=== PATIENT | female | born 1975 | race Caucasian/White ===

== ENCOUNTER 2016-11-10 15:10 | Emergency (ER) | payer MEDICAID ==
[2016-11-10] MEDS ORDERED: NS 1,000 ML IV ONE (15:22)
[2016-11-10] MEDS ORDERED: HYDROmorphONE/DILAUDID 1 MG/ML SYR IVP ONE (15:22)
--- NOTE | 2016-11-10 15:25 | EDPHY ---
H & P Source: Patient Exam Limitations: No limitations - Personal History LMP (Females 10-55): 8-14 Days Ago - Medical/Surgical History Hx Asthma: No Hx Chronic Respiratory Disease: No Hx Diabetes: No Hx Cardiac Disease: No Hx Renal Disease: No Hx Cirrhosis: No Hx Alcoholism: No - Family History Significant Family History: No pertinent family hx - Social History Alcohol Use: Sober Drug Use: None Time Seen by Provider: 11/10/16 15:17 HPI/ROS: CHIEF COMPLAINT: Epigastric pain HISTORY OF PRESENT ILLNESS: Patient is a 41-year-old female who reports a history of alcoholism and pancreatitis who called an ambulance complaining of epigastric pain. Her symptoms began today. Her last drink was today. She has history of appendectomy as well as chronic depression. At one point during our interview she told me that she was suicidal but then later states that she has been suicidal for 40 years and that she is not actively suicidal today. She does however state that if her pain does not come under control that she "wants to ". She has not vomited. She has not had a fever. She has not had any diarrhea. REVIEW OF SYSTEMS: Constitutional: denies: chills, fever, recent illness, recent injury EENTM: denies: blurred vision, double vision, nose congestion Respiratory: denies: cough, shortness of breath Cardiac: denies: chest pain, irregular heart rate, lightheadedness, palpitations Gastrointestinal/Abdominal: See HPI Genitourinary: denies: dysuria, frequency, hematuria, pain Musculoskeletal: denies: joint pain, muscle pain Skin: denies: lesions, rash, jaundice, bruising Neurological: denies: headache, numbness, paresthesia, tingling, dizziness, weakness Hematologic/Lymphatic: denies: blood clots, easy bleeding, easy bruising Immunologic/allergic: denies: HIV/AIDS, transplant EXAM: GENERAL: Well-appearing, well-nourished and in no acute distress. HEAD: Atraumatic, normocephalic. EYES: Pupils equal round and reactive to light, extraocular movements intact, sclera anicteric, conjunctiva are normal. ENT: TMs normal, nares patent, oropharynx clear without exudates. Moist mucous membranes. NECK: Normal range of motion, supple without lymphadenopathy or JVD. LUNGS: Breath sounds clear to auscultation bilaterally and equal. No wheezes rales or rhonchi. HEART: Regular rate and rhythm without murmurs, rubs or gallops. ABDOMEN: Soft, nontender, normoactive bowel sounds. No guarding, no rebound. No masses appreciated. BACK: No CVA tenderness, no spinal tenderness, step-offs or deformities EXTREMITIES: Normal range of motion, no pitting or edema. No clubbing or cyanosis. NEUROLOGICAL: Cranial nerves II through XII grossly intact. Normal speech, normal gait. 5/5 strength, normal movement in all extremities, normal sensation PSYCH: Normal mood, normal affect. SKIN: Warm, dry, normal turgor, no visible rashes or lesions. (Jarrod Whittaker) Constitutional: Initial Vital Signs Temperature (C) 37.2 C 11/10/16 15:36 Heart Rate 113 H 11/10/16 15:36 Respiratory Rate 17 11/10/16 15:36 Blood Pressure 138/115 H 11/10/16 15:36 O2 Sat (%) 98 11/10/16 15:36 O2 Delivery Mode Room Air O2 (L/minute) 2 Allergies/Adverse Reactions: disulfiram [From Antabuse] Allergy (Verified 11/10/16 15:36) Sulfa (Sulfonamide Antibiotics) Allergy (Verified 11/10/16 15:36) Home Medications: Medication Instructions Recorded chlordiazePOXIDE 25MG PREPK#6 25 mg PO Q3 PRN #1 btl 11/11/16 [Librium 25 mg Prepack#6] chlordiazePOXIDE [Librium 25 mg 25 mg PO TID PRN #7 cap 11/11/16 (*)] Medical Decision Making ED Course/Re-evaluation: 6:15 a.m.- The patient has been stable throughout my shift. Her most recent blood alcohol level was 0 0.045 just after midnight. She should be ready for evaluation by mental health shortly. This is not occurred yet. At 7:00 a.m., I anticipate the case will be signed out to the oncoming provider Dr. Berrios. (Nany Stover) 9:50 a.m. patient has been evaluated by mental health. I have discussed the care and treatment plan with mental health. She is in [id number] withdrawal. She has been given Ativan intravenously and Librium by mouth. She is stable. The plan is admission to detox unit. Patient is in agreement ( Kushal Berrios) At one point during our initial interview the patient requested to be admitted to the psychiatric service. We discussed this further and agree to treat her medically 1st and then readdress her psychiatric issues. She denies acute suicidality currently. She is not on a hold. 4:40 p.m. the patient is feeling much better. She is still slightly tachycardic and tremulous. I will add Librium to the Ativan she had previously. She continues to endorse suicidal ideation and is requesting to speak with mental health. 11:30 p.m. the patient is continuing to sober. We are awaiting sobriety and psychiatric evaluation. Care transferred to Dr. Stover (Jarrod Whittaker) Differential Diagnosis: Partial list of the Differential diagnosis considered include but were not limited to; depression, suicidality, pancreatitis, peptic ulcer disease, intoxication, substance abuse and although unlikely based on the history and physical exam, I also considered perforation, biliary disease, volvulus, abscess. (Jarrod Whittaker) - Data Points Laboratory Results: Laboratory Results 11/10/16 15:35 11/10/16 15:35 Medications Given: Discontinued Medications Chlordiazepoxide HCl (Librium) 25 mg PO EDNOW ONE Stop: 11/10/16 16:41 Last Admin: 11/10/16 16:51 Dose: 25 mg Chlordiazepoxide HCl (Librium) 25 mg PO EDNOW ONE Stop: 11/11/16 09:39 Last Admin: 11/11/16 09:39 Dose: 25 mg Hydromorphone HCl (Dilaudid) 1 mg IVP EDNOW ONE Stop: 11/10/16 15:23 Last Admin: 11/10/16 15:45 Dose: 1 mg Sodium Chloride (Ns) 1,000 mls @ 0 mls/hr IV ONCE ONE PRN Reason: Wide Open Stop: 11/10/16 15:23 Last Admin: 11/10/16 15:45 Dose: 1,000 mls Lorazepam (Ativan Injection) 2 mg IVP EDNOW ONE Stop: 11/10/16 16:21 Last Admin: 11/10/16 16:20 Dose: 2 mg Lorazepam (Ativan) 1 mg PO EDNOW ONE Stop: 11/10/16 23:53 Last Admin: 11/10/16 23:59 Dose: 1 mg Lorazepam (Ativan Injection) 1 mg IVP EDNOW ONE Stop: 11/11/16 09:38 Last Admin: 11/11/16 09:38 Dose: 1 mg Departure - Departure Disposition: Other Psych, Not Gautam Clinical Impression: Depression Qualifiers: Depression Type: major depressive disorder Major depression recurrence: recurrent Active/Remission status: currently active Major depression episode severity: moderate Qualified Code(s): F33.1 - Major depressive disorder, recurrent, moderate Alcohol intoxication Qualifiers: Complication of substance-induced condition: with unspecified complication Qualified Code(s): F10.129 - Alcohol abuse with intoxication, unspecified Condition: Fair Instructions: Chlordiazepoxide (By mouth), Alcohol Withdrawal (ED) Additional Instructions: Librium every 3-4 hours as needed for alcohol withdrawal. Return for worsening symptoms Referrals: Patient,NotPresent [Unknown] - As per Instructions Prescriptions: chlordiazePOXIDE [Librium 25 mg (*)] 25 mg PO TID PRN #7 cap PRN Reason: Agitation, Acute chlordiazePOXIDE 25MG PREPK#6 [Librium 25 mg Prepack#6] 25 mg PO Q3 PRN #1 btl PRN Reason: Agitation, Acute
[2016-11-10 15:41] LABS: % IMMATURE GRANULYOCYTES 0.2 % (0.0-1.1); ABSOLUTE IMMATURE GRANULOCYTES 0.01 10^3/uL (0.00-0.10); ADD DIFF? NO; ADD MORPH? NO; ADD SCAN? NO; ATYPICAL LYMPHOCYTE FLAG 0 (0-99); FRAGMENT RBC FLAG 20 (0-99); HEMOGLOBIN 12.4 g/dL (12.6-16.3); LEFT SHIFT FLG 0 (0-99); LIPEMIA HEMOLYSIS FLAG 80 (0-99); MEAN CELL HEMOGLOBIN 24.4 pg (27.9-34.1); MEAN CELL HEMOGLOBIN CONCENTR. 32.6 g/dL (32.4-36.7); MEAN CELL VOLUME 74.7 fL (81.5-99.8); MEAN PLATELET VOLUME 9.4 fL (8.7-11.7); PLATELET CLUMPS FLAG 0 (0-99); PLATELET COUNT 322 10^3/uL (150-400); RED BLOOD CELL COUNT 5.09 10^6/uL (4.18-5.33); RED CELL DISTRIBUTION WIDTH 18.7 % (11.5-15.2)
[2016-11-10 15:54] LABS: ALANINE AMINOTRANSFERASE 49 IU/L (9-52); ALBUMIN 5.2 g/dL (3.5-5.0); ALKALINE PHOSPHATASE 94 IU/L (38-126); ANION GAP 23 mEq/L (8-16); ASPARTATE AMINOTRANSFERASE 71 IU/L (14-46); BILIRUBIN,TOTAL 0.9 mg/dL (0.1-1.4); BILIRUBIN-CONJUGATED 0.5 mg/dL (0.0-0.5); BILIRUBIN-UNCONJUGATED 0.4 mg/dL (0.0-1.1); CALCIUM 9.3 mg/dL (8.5-10.4); CARBON DIOXIDE 16 mEq/l (22-31); CHLORIDE 105 mEq/L (97-110); CREATININE 0.7 mg/dL (0.6-1.0); GLOMERULAR FILTRATION RATE > 60; GLUCOSE 113 mg/dL (70-100); POTASSIUM 4.1 mEq/L (3.5-5.2); SODIUM 144 mEq/L (134-144); TOTAL PROTEIN 8.7 g/dL (6.3-8.2)
[2016-11-10] MEDS ORDERED: LORazepam 2 MG/ML INJ IVP ONE (16:20)
[2016-11-10] MEDS ORDERED: chlordiazePOXIDE 25 MG CAP PO ONE (16:40)
[2016-11-10 16:51] LABS: ETHANOL SERUM 285 mg/dL (0-10)
[2016-11-10] MEDS ORDERED: LORazepam 1 MG TAB PO ONE (23:52)
[2016-11-11] MEDS ORDERED: chlordiazePOXIDE 25 MG CAP PO SCH
[2016-11-11] MEDS ORDERED: LORazepam 1 MG TAB ONE (07:53)
[2016-11-11 08:04] VITALS: TEMP 98.1
[2016-11-11] MEDS ORDERED: chlordiazePOXIDE 25 MG CAP ONE (09:34)
[2016-11-11] MEDS ORDERED: LORazepam 2 MG/ML INJ ONE (09:34)
[2016-11-11] MEDS ORDERED: LORazepam 2 MG/ML INJ IVP ONE (09:37)
[2016-11-11] MEDS ORDERED: chlordiazePOXIDE 25 MG CAP PO ONE (09:38)
[2016-11-11 10:27] VITALS: BP 139/92; PULSE 93; RESP 17; O2SAT 92
== END 2016-11-11 11:00 ==
LOC: EDUNIT#
DX: F10.129 Alcohol abuse with intoxication, unspecified (principal); F33.1 Major depressive disorder, recurrent, moderate
CPT/HCPCS: 80305; 96374; G0480; J1170; J2060

== ENCOUNTER 2017-01-09 11:52 | Emergency (ER) | payer MEDICAID ==
[2017-01-09] MEDS ORDERED: ONDANSETRON DISINTEGRATING 4 MG TAB PO ONE (12:02)
[2017-01-09] MEDS ORDERED: ONDANSETRON 4 MG/2 ML VIAL IVP ONE (14:43)
[2017-01-09] MEDS ORDERED: NS 500 ML IV ONE (14:44)
--- NOTE | 2017-01-09 15:14 | EDPHY ---
Mental Health General Previous Psychiatric History: previous inpatient psychiatric admission, previous ED visit related to suicidal ideations, previous suicide attempt, substance abuse, depression Smoking Status: Never smoked Time Patient Placed on Detainer: 15:10 Time Medically Cleared for Psychiatric Evaluation: 17:00 Time of Transfer of Care: 17:00 To :: Mauricio Course: patient remained stable over course of my shift Narrative: CHIEF COMPLAINT: ETOH, suicidal HISTORY OF PRESENT ILLNESS: 41-year-old female presents emergency department voluntarily a friend reports increases alcohol consumption over the last week drinking 1.5 pt daily. Patient reports she relapsed 5 months ago. She was sober for 3 months after a rehab. Patient reports a history of alcohol withdrawal symptoms. No history of alcohol withdrawals seizures. Patient states she is suicidal. She says she has been suicidal most all of her life though it has worsened over the last 3 days. She has a plan to overdose on pills. Patient reports she has not taken her Prozac for about a week. She reports she was in the ICU 1 year ago after an overdose. Patient reports epigastric abdominal pain. She states she has a history of pancreatitis. She complains of nausea and vomiting. She denies blood in her vomit, no coffee- ground emesis. No blood in her stool. She denies chest pain or shortness of breath. REVIEW OF SYSTEMS: A comprehensive 10 point review of systems is otherwise negative aside from elements mentioned in the history of present illness. (Sofia Lima) 2100: Patient is medically clear for mental health evaluation. 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 Patient is now liana for safety. Has no suicidal ideation. There have agreed that the [facility]. When she has gone through her alcohol withdrawal she will follow up with [facility] regarding her depression. Patient will be sent with Librium. ( Jonathan Martínez) Medical Decision Makin-patient is medically cleared for evaluation. Lipase is normal. Patient has no evidence of pancreatitis. Anion gap is 29. Patient is given 1 L of normal saline, chemistry panel is rechecked, anion gap is down to 24. Patient is given another L of fluid left, she will be given something to eat. Mental health evaluation has been ordered. 1700-Report passed on to Dr. Martínez at the end of my shift pending eval. ( Sofia Lima) 2300 Care assumed by me from Dr. Martínez pending sober mental health evaluation. (Jonathan Martínez) - Objective Vital Signs: Initial Vital Signs Temperature (C) 37.1 C 01/09/17 11:56 Heart Rate 113 H 01/09/17 11:56 Respiratory Rate 18 01/09/17 11:56 Blood Pressure 145/92 H 01/09/17 11:56 O2 Sat (%) 96 01/09/17 11:56 O2 Delivery Mode Room Air Allergies/Adverse Reactions: disulfiram [From Antabuse] Allergy (Verified 01/09/17 12:00) Sulfa (Sulfonamide Antibiotics) Allergy (Verified 01/09/17 12:00) Home Medications: Medication Instructions Recorded Propranolol HCl 01/09/17 Prozac 40 mg 01/09/17 traZODone 01/09/17 Medications Given: Discontinued Medications Sodium Chloride (Ns) 500 mls @ 1,000 mls/hr IV ONCE ONE PRN Reason: Protocol Stop: 01/09/17 15:13 Last Admin: 01/09/17 14:51 Dose: 500 mls Sodium Chloride (Ns) 1,000 mls @ 0 mls/hr IV ONCE ONE; Wide Open PRN Reason: Protocol Stop: 01/09/17 16:57 Last Admin: 01/09/17 17:32 Dose: 1,000 mls Lorazepam (Ativan Injection) 1 mg IVP EDNOW ONE Stop: 01/09/17 16:25 Last Admin: 01/09/17 16:32 Dose: 1 mg Lorazepam (Ativan Injection) 1 mg IVP EDNOW ONE Stop: 01/09/17 22:32 Last Admin: 01/09/17 22:42 Dose: 1 mg Ondansetron HCl (Zofran Odt) 4 mg PO EDNOW ONE Stop: 01/09/17 12:03 Last Admin: 01/09/17 12:04 Dose: 4 mg Ondansetron HCl (Zofran) 4 mg IVP EDNOW ONE Stop: 01/09/17 14:44 Last Admin: 01/09/17 14:51 Dose: 4 mg Laboratory Results: Laboratory Results 01/09/17 14:02 01/09/17 20:10 01/09/17 01/09/17 01/09/17 20:10 16:30 14:35 WBC RBC Hgb Hct MCV MCH MCHC RDW Plt Count MPV Neut % (Auto) Lymph % (Auto) Hale % (Auto) Eos % (Auto) Baso % (Auto) Nucleat RBC Rel Count Absolute Neuts (auto) Absolute Lymphs (auto) Absolute Monos (auto) Absolute Eos (auto) Absolute Basos (auto) Absolute Nucleated RBC Immature Gran % Immature Gran # Sodium 139 mEq/L mEq/L 145 mEq/L H mEq/L (134-144) (134-144) Potassium 4.3 mEq/L mEq/L 4.7 mEq/L mEq/L (3.5-5.2) (3.5-5.2) Chloride 107 mEq/L mEq/L 109 mEq/L mEq/L (97-110) (97-110) Carbon Dioxide 16 mEq/l L mEq/l 12 mEq/l L mEq/l (22-31) (22-31) Anion Gap 16 mEq/L mEq/L 24 mEq/L H mEq/L (8-16) (8-16) BUN 9 mg/dL mg/dL 9 mg/dL mg/dL (7-23) (7-23) Creatinine 0.7 mg/dL mg/dL 0.7 mg/dL mg/dL (0.6-1.0) (0.6-1.0) Estimated GFR > 60 > 60 Glucose 206 mg/dL H D mg/dL 71 mg/dL mg/dL (70-100) (70-100) Calcium 8.2 mg/dL L mg/dL 8.9 mg/dL mg/dL (8.5-10.4) (8.5-10.4) Lipase Beta HCG, Qual Salicylates Urine Opiates Screen NEGATIVE (NEGATIVE) Acetaminophen Urine Barbiturates NEGATIVE (NEGATIVE) Ur Phencyclidine Scrn NEGATIVE (NEGATIVE) Ur Amphetamine Screen NEGATIVE (NEGATIVE) U Benzodiazepines Scrn NEGATIVE (NEGATIVE) Urine Cocaine Screen NEGATIVE (NEGATIVE) U Marijuana (THC) Screen NON-NEGATIVE H (NEGATIVE) Ethyl Alcohol 01/09/17 01/09/17 01/09/17 14:02 14:02 14:02 WBC 8.89 10^3/uL 10^3/uL (3.80-9.50) RBC 4.75 10^6/uL 10^6/uL (4.18-5.33) Hgb 12.0 g/dL L g/dL (12.6-16.3) Hct 36.9 % L % (38.0-47.0) MCV 77.7 fL L fL (81.5-99.8) MCH 25.3 pg L pg (27.9-34.1) MCHC 32.5 g/dL g/dL (32.4-36.7) RDW 18.6 % H % (11.5-15.2) Plt Count 335 10^3/uL 10^3/uL (150-400) MPV 10.1 fL fL (8.7-11.7) Neut % (Auto) 74.6 % H % (39.3-74.2) Lymph % (Auto) 20.5 % % (15.0-45.0) Hale % (Auto) 4.3 % L % (4.5-13.0) Eos % (Auto) 0.0 % L % (0.6-7.6) Baso % (Auto) 0.4 % % (0.3-1.7) Nucleat RBC Rel Count 0.0 % % (0.0-0.2) Absolute Neuts (auto) 6.63 10^3/uL H 10^3/uL (1.70-6.50) Absolute Lymphs (auto) 1.82 10^3/uL 10^3/uL (1.00-3.00) Absolute Monos (auto) 0.38 10^3/uL 10^3/uL (0.30-0.80) Absolute Eos (auto) 0.00 10^3/uL L 10^3/uL (0.03-0.40) Absolute Basos (auto) 0.04 10^3/uL 10^3/uL (0.02-0.10) Absolute Nucleated RBC 0.00 10^3/uL 10^3/uL (0-0.01) Immature Gran % 0.2 % % (0.0-1.1) Immature Gran # 0.02 10^3/uL 10^3/uL (0.00-0.10) Sodium 145 mEq/L H mEq/L (134-144) Potassium 4.2 mEq/L mEq/L (3.5-5.2) Chloride 105 mEq/L mEq/L (97-110) Carbon Dioxide 11 mEq/l L mEq/l (22-31) Anion Gap 29 mEq/L H mEq/L (8-16) BUN 10 mg/dL mg/dL (7-23) Creatinine 0.8 mg/dL mg/dL (0.6-1.0) Estimated GFR > 60 Glucose 81 mg/dL mg/dL (70-100) Calcium 10.1 mg/dL mg/dL (8.5-10.4) Lipase 38.0 IU/L IU/L (23-300) Beta HCG, Qual NEGATIVE Salicylates < 1.0 mg/dL L mg/dL (2.0-20.0) Urine Opiates Screen Acetaminophen < 10 mcg/mL L mcg/mL (10.0-30.0) Urine Barbiturates Ur Phencyclidine Scrn Ur Amphetamine Screen U Benzodiazepines Scrn Urine Cocaine Screen U Marijuana (THC) Screen Ethyl Alcohol 337 mg/dL H mg/dL (0-10) Departure - Departure Disposition: Home, Routine, Self-Care Clinical Impression: Alcohol intoxication Qualifiers: Complication of substance-induced condition: uncomplicated Qualified Code(s): F10.920 - Alcohol use, unspecified with intoxication, uncomplicated Depression Qualifiers: Depression Type: unspecified Qualified Code(s): F32.9 - Major depressive disorder, single episode, unspecified Condition: Fair Instructions: Alcohol Intoxication (ED), Depression (ED), Chlordiazepoxide (By mouth) Additional Instructions: Follow up with [facility] in 2-3 days for further treatment for her depression. Return emergency depart for increasing suicidal thoughts. Fevers, chills, nausea, vomiting, or any other concerns. Referrals: NONE *PRIMARY CARE P,. [Primary Care Provider] - As per Instructions
[2017-01-09 15:17] LABS: % IMMATURE GRANULYOCYTES 0.2 % (0.0-1.1); ABSOLUTE IMMATURE GRANULOCYTES 0.02 10^3/uL (0.00-0.10); ADD DIFF? NO; ADD MORPH? NO; ADD SCAN? NO; ATYPICAL LYMPHOCYTE FLAG 0 (0-99); FRAGMENT RBC FLAG 20 (0-99); HEMATOCRIT 36.9 % (38.0-47.0); LEFT SHIFT FLG 0 (0-99); LIPEMIA HEMOLYSIS FLAG 80 (0-99); MEAN CELL HEMOGLOBIN 25.3 pg (27.9-34.1); MEAN CELL HEMOGLOBIN CONCENTR. 32.5 g/dL (32.4-36.7); MEAN CELL VOLUME 77.7 fL (81.5-99.8); MEAN PLATELET VOLUME 10.1 fL (8.7-11.7); PLATELET CLUMPS FLAG 0 (0-99); PLATELET COUNT 335 10^3/uL (150-400); RED BLOOD CELL COUNT 4.75 10^6/uL (4.18-5.33); RED CELL DISTRIBUTION WIDTH 18.6 % (11.5-15.2)
[2017-01-09 15:23] LABS: ANION GAP 29 mEq/L (8-16); CALCIUM 10.1 mg/dL (8.5-10.4); CARBON DIOXIDE 11 mEq/l (22-31); CHLORIDE 105 mEq/L (97-110); CREATININE 0.8 mg/dL (0.6-1.0); GLOMERULAR FILTRATION RATE > 60; GLUCOSE 81 mg/dL (70-100); POTASSIUM 4.2 mEq/L (3.5-5.2); SALICYLATE < 1.0 mg/dL (2.0-20.0); SODIUM 145 mEq/L (134-144)
[2017-01-09 15:44] LABS: ETHANOL SERUM 337 mg/dL (0-10)
[2017-01-09] MEDS ORDERED: NS 1,000 ML IV ONE ×2 (16:04→16:56)
[2017-01-09] MEDS ORDERED: LORazepam 2 MG/ML INJ IVP ONE ×2 (16:24→22:31)
[2017-01-09 16:35] VITALS: TEMP 98.2
[2017-01-09 16:49] LABS: ANION GAP 24 mEq/L (8-16); CALCIUM 8.9 mg/dL (8.5-10.4); CARBON DIOXIDE 12 mEq/l (22-31); CHLORIDE 109 mEq/L (97-110); CREATININE 0.7 mg/dL (0.6-1.0); GLOMERULAR FILTRATION RATE > 60; GLUCOSE 71 mg/dL (70-100); POTASSIUM 4.7 mEq/L (3.5-5.2); SODIUM 145 mEq/L (134-144)
[2017-01-09 20:33] LABS: ANION GAP 16 mEq/L (8-16); CALCIUM 8.2 mg/dL (8.5-10.4); CARBON DIOXIDE 16 mEq/l (22-31); CHLORIDE 107 mEq/L (97-110); CREATININE 0.7 mg/dL (0.6-1.0); GLOMERULAR FILTRATION RATE > 60; GLUCOSE 206 mg/dL (70-100); POTASSIUM 4.3 mEq/L (3.5-5.2); SODIUM 139 mEq/L (134-144)
[2017-01-10] MEDS ORDERED: CHLORDIAZEPOXIDE 25MG PREPK#6 BTL TAKEHOME ONE (00:54)
[2017-01-10 01:12] VITALS: RESP 16
[2017-01-10] MEDS ORDERED: chlordiazePOXIDE 25 MG CAP PO ONE (01:30)
[2017-01-10 01:49] VITALS: BP 143/94; PULSE 104; O2SAT 98
== END 2017-01-10 02:01 | disposition home or self-care (01) ==
DX: F10.120 Alcohol abuse with intoxication, uncomplicated (principal); F32.9 Major depressive disorder, single episode, unspecified; E86.9 Volume depletion, unspecified
CPT/HCPCS: 80305; 96374; G0480; J2060; J2405

== ENCOUNTER 2017-01-11 04:28 | Emergency (ER) | payer MEDICAID ==
--- NOTE | 2017-01-11 04:41 | EDPHY ---
H & P - Medical/Surgical History Hx Asthma: No Hx Chronic Respiratory Disease: No Hx Diabetes: No Hx Cardiac Disease: No Hx Renal Disease: No Hx Cirrhosis: No Hx Alcoholism: Yes Hx HIV/AIDS: No Hx Splenectomy or Spleen Trauma: No Other PMH: pancreatitis, ETOH abuse, suicidal ideation, depression, Bipolar, PTSD - Social History Smoking Status: Never smoked Time Seen by Provider: 01/11/17 04:37 HPI/ROS: Chief Complaint: Intoxicated, suicidal HPI: 41-year-old woman with a history of chronic alcoholism is [facility] after attempted suicide. She was seen by [facility] and placed on a mental health hold. Patient was seen 2 days ago and after being intoxicated and suicidal. At that time after she sobered up she is liana for safety. She denies any ingestions other than alcohol. She was at the are trying to find something to stab herself with. ROS: 10 point Review of Systems is negative except as noted in the HPI. PMH: Pancreatitis, depression, PTSD, chronic alcohol abuse Medications: She is noncompliant but is supposed to be taking Prozac and trazodone Allergies: Sulfa and Antabuse Social History: No smoking, heavy alcohol, no recreational drug use Family History: non-contributory Physical Exam: Gen: Awake, Alert, smells of alcohol, slurred speech HEENT: Nose: no rhinorrhea Eyes: PERRLA, EOMI Mouth: Moist mucosa Neck: Supple, no JVD Chest: nontender, lungs clear to auscultation Heart: S1, S2 normal, no murmur Abd: Soft, non-tender, no guarding Back: no CVA tenderness, no midline tenderness Ext: no edema, non-tender Skin: no rash Neuro: CN II-XII intact, Sensation grossly intact, Strength 5/5 in bilateral upper and lower extremities (Jonathan Martínez) Constitutional: Initial Vital Signs Temperature (C) 36.6 C 01/11/17 05:14 Heart Rate 97 01/11/17 05:14 Respiratory Rate 16 01/11/17 05:14 Blood Pressure 118/87 H 01/11/17 05:14 O2 Sat (%) 94 01/11/17 05:14 O2 Delivery Mode Room Air Allergies/Adverse Reactions: disulfiram [From Antabuse] Allergy (Verified 01/09/17 12:00) Sulfa (Sulfonamide Antibiotics) Allergy (Verified 01/09/17 12:00) Home Medications: Medication Instructions Recorded Propranolol HCl 01/09/17 Prozac 40 mg 01/09/17 traZODone 01/09/17 Medical Decision Making ED Course/Re-evaluation: 0700 Pt s/o to Dr Berrios pending mental health evaluation. (Jonathan Martínez) Patient signed out to me at 7:00 a.m.. Re-evaluation of the patient at 7:25 a.m.. She is resting comfortably though says she is thinking of her hurting herself. Possibly by stabbing. It is noted patient's alcohol level is elevated. Plan is when sober re-evaluation. If not suicidal when sober may go back [facility]. If still suicidal when sober mental health evaluation Patient is still suicidal when sober. She is awaiting mental health evaluation (Kushal Berrios) 4:40 p.m. the patient is now sober. She denies suicidality. She has been evaluated and they wish to release her hold. I agree with this plan. (Jarrod Whittaker) Care Turn Over: Dr. Whittaker at 3:00 p.m. (Kushal Berrios) - Data Points Laboratory Results: Laboratory Results 01/11/17 05:10 01/11/17 05:10 01/11/17 01/11/17 01/11/17 05:10 05:10 04:47 WBC 6.07 10^3/uL 10^3/uL (3.80-9.50) RBC 4.57 10^6/uL 10^6/uL (4.18-5.33) Hgb 11.6 g/dL L g/dL (12.6-16.3) Hct 35.2 % L % (38.0-47.0) MCV 77.0 fL L fL (81.5-99.8) MCH 25.4 pg L pg (27.9-34.1) MCHC 33.0 g/dL g/dL (32.4-36.7) RDW 17.5 % H % (11.5-15.2) Plt Count 254 10^3/uL D 10^3/uL (150-400) MPV 10.1 fL fL (8.7-11.7) Neut % (Auto) 60.1 % % (39.3-74.2) Lymph % (Auto) 30.5 % % (15.0-45.0) [place] % (Auto) 5.3 % % (4.5-13.0) Eos % (Auto) 3.1 % % (0.6-7.6) Baso % (Auto) 0.8 % % (0.3-1.7) Nucleat RBC Rel Count 0.0 % % (0.0-0.2) Absolute Neuts (auto) 3.65 10^3/uL 10^3/uL (1.70-6.50) Absolute Lymphs (auto) 1.85 10^3/uL 10^3/uL (1.00-3.00) Absolute Monos (auto) 0.32 10^3/uL 10^3/uL (0.30-0.80) Absolute Eos (auto) 0.19 10^3/uL 10^3/uL (0.03-0.40) Absolute Basos (auto) 0.05 10^3/uL 10^3/uL (0.02-0.10) Absolute Nucleated RBC 0.00 10^3/uL 10^3/uL (0-0.01) Immature Gran % 0.2 % % (0.0-1.1) Immature Gran # 0.01 10^3/uL 10^3/uL (0.00-0.10) Sodium 146 mEq/L H mEq/L (134-144) Potassium 3.4 mEq/L L mEq/L (3.5-5.2) Chloride 108 mEq/L mEq/L (97-110) Carbon Dioxide 19 mEq/l L mEq/l (22-31) Anion Gap 19 mEq/L H mEq/L (8-16) BUN 4 mg/dL L mg/dL (7-23) Creatinine 0.6 mg/dL mg/dL (0.6-1.0) Estimated GFR > 60 Glucose 108 mg/dL H mg/dL (70-100) Calcium 9.3 mg/dL mg/dL (8.5-10.4) Urine Opiates Screen NEGATIVE (NEGATIVE) Urine Barbiturates NEGATIVE (NEGATIVE) Ur Phencyclidine Scrn NEGATIVE (NEGATIVE) Ur Amphetamine Screen NEGATIVE (NEGATIVE) U Benzodiazepines Scrn NON-NEGATIVE H (NEGATIVE) Urine Cocaine Screen NEGATIVE (NEGATIVE) U Marijuana (THC) Screen NON-NEGATIVE H (NEGATIVE) Ethyl Alcohol 274 mg/dL H mg/dL (0-10) Medications Given: Discontinued Medications Lorazepam (Ativan) 1 mg PO EDNOW ONE Stop: 01/11/17 06:34 Last Admin: 01/11/17 06:48 Dose: 1 mg Lorazepam (Ativan) 1 mg PO EDNOW ONE Stop: 01/11/17 14:01 Last Admin: 01/11/17 14:04 Dose: 1 mg Departure - Departure Disposition: Home, Routine, Self-Care Clinical Impression: Alcohol intoxication Qualifiers: Complication of substance-induced condition: with unspecified complication Qualified Code(s): F10.929 - Alcohol use, unspecified with intoxication, unspecified Condition: Fair Instructions: Alcohol Intoxication (ED) Referrals: Patient,NotPresent [Unknown] - As per Instructions Verito Shipley MD [Medical Doctor] - As per Instructions Larry Membreno MD [Medical Doctor] - As per Instructions
[2017-01-11 05:18] VITALS: RESP 16
[2017-01-11 05:30] LABS: % IMMATURE GRANULYOCYTES 0.2 % (0.0-1.1); ABSOLUTE IMMATURE GRANULOCYTES 0.01 10^3/uL (0.00-0.10); ADD DIFF? NO; ADD MORPH? NO; ADD SCAN? NO; ATYPICAL LYMPHOCYTE FLAG 0 (0-99); FRAGMENT RBC FLAG 20 (0-99); HEMATOCRIT 35.2 % (38.0-47.0); HEMOGLOBIN 11.6 g/dL (12.6-16.3); LEFT SHIFT FLG 0 (0-99); LIPEMIA HEMOLYSIS FLAG 80 (0-99); MEAN CELL HEMOGLOBIN 25.4 pg (27.9-34.1); MEAN PLATELET VOLUME 10.1 fL (8.7-11.7); PLATELET CLUMPS FLAG 30 (0-99); PLATELET COUNT 254 10^3/uL (150-400); RED BLOOD CELL COUNT 4.57 10^6/uL (4.18-5.33); RED CELL DISTRIBUTION WIDTH 17.5 % (11.5-15.2)
[2017-01-11 05:33] LABS: ANION GAP 19 mEq/L (8-16); CALCIUM 9.3 mg/dL (8.5-10.4); CARBON DIOXIDE 19 mEq/l (22-31); CHLORIDE 108 mEq/L (97-110); CREATININE 0.6 mg/dL (0.6-1.0); ETHANOL SERUM 274 mg/dL (0-10); GLOMERULAR FILTRATION RATE > 60; GLUCOSE 108 mg/dL (70-100); POTASSIUM 3.4 mEq/L (3.5-5.2); SODIUM 146 mEq/L (134-144)
[2017-01-11] MEDS ORDERED: LORazepam 1 MG TAB PO ONE ×2 (06:33→14:00)
[2017-01-11 16:53] VITALS: BP 165/98; PULSE 100; TEMP 98.1; O2SAT 96
== END 2017-01-11 16:56 | disposition home or self-care (01) ==
LOC: EDUNIT#
DX: F10.120 Alcohol abuse with intoxication, uncomplicated (principal)
CPT/HCPCS: 80305; G0480

== ENCOUNTER 2017-02-10 19:13 | Emergency (ER) | payer MEDICAID ==
--- NOTE | 2017-02-10 20:57 | EDPHY ---
H & P Stated Complaint: pt says "I'm drunk and I want to get sober." Source: Patient, Family Exam Limitations: No limitations - Medical/Surgical History Hx Asthma: No Hx Chronic Respiratory Disease: No Hx Diabetes: No Hx Cardiac Disease: No Hx Renal Disease: No Hx Cirrhosis: No Hx Alcoholism: Yes Hx HIV/AIDS: No Hx Splenectomy or Spleen Trauma: No Other PMH: pancreatitis, ETOH abuse, suicidal ideation, depression, Bipolar, PTSD - Social History Smoking Status: Never smoked HPI/ROS: CHIEF COMPLAINT: SI, alcohol abuse HISTORY OF PRESENT ILLNESS: Patient complains of suicidal ideation. She has felt very depressed and had thoughts of killing herself by overdosing on pills. This is due to chronic alcohol use and abuse. She has an appointment on Friday at [facility] for inpatient treatment but feels that she can't make it. This has increased her depression and dependency on alcohol. She has been drinking heavily, 6 shots of vodka at 6:00 p.m. today. Earlier today she began feeling suicidal with the above plan. She does express intent to do so should she be discharged home. She plans on taking propanolol or other pills. No other associated complaints or modifying factors. PSYCHIATRIC DIAGNOSES: Depression, alcoholism PRIOR PSYCHIATRIC EVALUATIONS: Multiple M1/DETAINER: By Dr. Kallie Bond at 8:52 p.m. REVIEW OF SYSTEMS: Ten systems reviewed and are negative unless otherwise noted in the HPI EXAMINATION General Appearance: Alert, no distress Head: normocephalic, atraumatic Eyes: Pupils equal and round, no conjunctival pallor or injection ENT, Mouth: Mucous membranes moist Neck: Normal inspection, supple, non-tender Respiratory: Lungs are clear to auscultation Cardiovascular: Regular rate and rhythm. No murmur. Pulses intact distally Gastrointestinal: Abdomen is soft and nontender Back: non-tender, no bony abnormalities Neurological: GCS 15. A&O, nonfocal, normal gait. No tremor. Skin: Warm and dry, no rash Extremities: Nontender, no pedal edema Psychiatric: Flat affect. Suicidal with plan of overdosing on pills. She will not provide the name of the pills but has access to propanolol and others. Denies actually attempting to do so DIFFERENTIAL DIAGNOSES: Including but not limited to acute alcohol intoxication, alcohol dependency, alcohol withdrawal, DTs, suicidal ideation, depression MDM: 8:55 p.m. Acute suicidal ideation with thoughts of overdosing on pills that he she has at home. She admits to doing the same in the past. She denies taking any actual pills. She admits to heavy alcohol use including 6 shots of vodka this evening and normally more than that daily. 10:00 p.m. Patient remains calm and cooperative. Laboratory studies are pending. M1 has been completed and the patient is resting 10:55 p.m. Laboratory studies reveal elevated serum alcohol above the level that successful closed evaluating her. They are otherwise negative. She will remain here until her blood alcohol decrease this to the point that they will evaluate her. 12:35 a.m. I have re-evaluated the patient. She is currently sleeping. She will await evaluation in the morning when she is not intoxicated. M1 hold is in place. At this time I will discuss the case with Dr. Chapman. He will assume care of the patient. Please see his note for final disposition. (Sammy Mckeon) Constitutional: Initial Vital Signs Temperature (C) 36.8 C 02/10/17 19:37 Heart Rate 100 02/10/17 19:37 Respiratory Rate 16 02/10/17 19:37 Blood Pressure 136/99 H 02/10/17 19:37 O2 Sat (%) 95 02/10/17 19:37 O2 Delivery Mode Room Air Allergies/Adverse Reactions: disulfiram [From Antabuse] Allergy (Verified 02/10/17 19:40) gluten Allergy (Verified 02/10/17 19:40) Sulfa (Sulfonamide Antibiotics) Allergy (Verified 02/10/17 19:40) Home Medications: Medication Instructions Recorded Propranolol HCl 01/09/17 Prozac 40 mg 01/09/17 traZODone 01/09/17 Medical Decision Making ED Course/Re-evaluation: [id number]: I did go and see and evaluate this patient. She is now much more sober. She does feel like she is going to alcohol withdrawal. She will be given 50 mg of Librium. She does tell me that she drinks 10-20 shots of liquor per day. She has done so for 5 years. She mainly does is due to depression anxiety. She tells me that when she gets really drunk she gets suicidal. ( Garrett Chapman) This patient was signed out to me at change of shift. She is completely sober at this point. She states that she was just sane things while she was intoxicated she has no intention whatsoever of killing herself. She has an appointment at [facility] this Friday to deal with her alcoholism. She got 50 mg of Librium at 5:30 a.m. this morning and I will give her another 50 mg now. She does not [facility] to [facility]. She will return here if needed. (Arnaldo Martínez) - Data Points Laboratory Results: Laboratory Results 02/10/17 21:05 02/10/17 21:05 02/10/17 02/10/17 02/10/17 21:05 21:05 21:05 WBC RBC Hgb Hct MCV MCH MCHC RDW Plt Count MPV Neut % (Auto) Lymph % (Auto) Fannin % (Auto) Eos % (Auto) Baso % (Auto) Nucleat RBC Rel Count Absolute Neuts (auto) Absolute Lymphs (auto) Absolute Monos (auto) Absolute Eos (auto) Absolute Basos (auto) Absolute Nucleated RBC Immature Gran % Immature Gran # Sodium 141 mEq/L mEq/L (134-144) Potassium 4.2 mEq/L mEq/L (3.5-5.2) Chloride 104 mEq/L mEq/L (97-110) Carbon Dioxide 16 mEq/l L mEq/l (22-31) Anion Gap 21 mEq/L H mEq/L (8-16) BUN 11 mg/dL mg/dL (7-23) Creatinine 0.8 mg/dL mg/dL (0.6-1.0) Estimated GFR > 60 Glucose 98 mg/dL mg/dL (70-100) Calcium 9.7 mg/dL mg/dL (8.5-10.4) Beta HCG, Qual NEGATIVE Specimen Hemolysis 118 Salicylates < 1.0 mg/dL L mg/dL (2.0-20.0) Urine Opiates Screen NEGATIVE (NEGATIVE) Acetaminophen < 10 mcg/mL L mcg/mL (10-30) Urine Barbiturates NEGATIVE (NEGATIVE) Ur Phencyclidine Scrn NEGATIVE (NEGATIVE) Ur Amphetamine Screen NEGATIVE (NEGATIVE) U Benzodiazepines Scrn NEGATIVE (NEGATIVE) Urine Cocaine Screen NEGATIVE (NEGATIVE) U Marijuana (THC) Screen NEGATIVE (NEGATIVE) Ethyl Alcohol 326 mg/dL H mg/dL (0-10) 08/28/17 21:05 WBC 6.91 10^3/uL 10^3/uL (3.80-9.50) RBC 4.69 10^6/uL 10^6/uL (4.18-5.33) Hgb 12.1 g/dL L g/dL (12.6-16.3) Hct 36.9 % L % (38.0-47.0) MCV 78.7 fL L fL (81.5-99.8) MCH 25.8 pg L pg (27.9-34.1) MCHC 32.8 g/dL g/dL (32.4-36.7) RDW 18.7 % H % (11.5-15.2) Plt Count 310 10^3/uL 10^3/uL (150-400) MPV 9.9 fL fL (8.7-11.7) Neut % (Auto) 37.8 % L % (39.3-74.2) Lymph % (Auto) 54.3 % H % (15.0-45.0) Fannin % (Auto) 6.1 % % (4.5-13.0) Eos % (Auto) 0.9 % % (0.6-7.6) Baso % (Auto) 0.6 % % (0.3-1.7) Nucleat RBC Rel Count 0.0 % % (0.0-0.2) Absolute Neuts (auto) 2.62 10^3/uL 10^3/uL (1.70-6.50) Absolute Lymphs (auto) 3.75 10^3/uL H 10^3/uL (1.00-3.00) Absolute Monos (auto) 0.42 10^3/uL 10^3/uL (0.30-0.80) Absolute Eos (auto) 0.06 10^3/uL 10^3/uL (0.03-0.40) Absolute Basos (auto) 0.04 10^3/uL 10^3/uL (0.02-0.10) Absolute Nucleated RBC 0.00 10^3/uL 10^3/uL (0-0.01) Immature Gran % 0.3 % % (0.0-1.1) Immature Gran # 0.02 10^3/uL 10^3/uL (0.00-0.10) Sodium Potassium Chloride Carbon Dioxide Anion Gap BUN Creatinine Estimated GFR Glucose Calcium Beta HCG, Qual Specimen Hemolysis Salicylates Urine Opiates Screen Acetaminophen Urine Barbiturates Ur Phencyclidine Scrn Ur Amphetamine Screen U Benzodiazepines Scrn Urine Cocaine Screen U Marijuana (THC) Screen Ethyl Alcohol Medications Given: Discontinued Medications Chlordiazepoxide HCl (Librium) 50 mg PO EDNOW ONE Stop: 02/11/17 05:37 Last Admin: 02/11/17 05:42 Dose: 50 mg Departure - Departure Disposition: Home, Routine, Self-Care Clinical Impression: Suicidal ideation Alcohol dependence Qualifiers: Substance use status: with intoxication Complication of substance-induced condition: uncomplicated Qualified Code(s): F10.220 - Alcohol dependence with intoxication, uncomplicated Depression Qualifiers: Depression Type: major depressive disorder Major depression recurrence: single episode Active/Remission status: currently active Major depression episode severity: moderate Qualified Code(s): F32.1 - Major depressive disorder, single episode, moderate Condition: Good Instructions: Depression (ED), Alcohol Intoxication (ED), Abuse of Alcohol (ED) Referrals: NONE *PRIMARY CARE P,. [Primary Care Provider] - As per Instructions Juany Horn DO [Doctor of Osteopathy] - As per Instructions Stand Alone Forms: [facility]
[2017-02-10 21:14] LABS: % IMMATURE GRANULYOCYTES 0.3 % (0.0-1.1); ABSOLUTE IMMATURE GRANULOCYTES 0.02 10^3/uL (0.00-0.10); ADD DIFF? NO; ADD MORPH? NO; ADD SCAN? NO; ATYPICAL LYMPHOCYTE FLAG 0 (0-99); FRAGMENT RBC FLAG 20 (0-99); HEMATOCRIT 36.9 % (38.0-47.0); HEMOGLOBIN 12.1 g/dL (12.6-16.3); LEFT SHIFT FLG 0 (0-99); LIPEMIA HEMOLYSIS FLAG 80 (0-99); MEAN CELL HEMOGLOBIN 25.8 pg (27.9-34.1); MEAN CELL HEMOGLOBIN CONCENTR. 32.8 g/dL (32.4-36.7); MEAN CELL VOLUME 78.7 fL (81.5-99.8); MEAN PLATELET VOLUME 9.9 fL (8.7-11.7); PLATELET CLUMPS FLAG 30 (0-99); PLATELET COUNT 310 10^3/uL (150-400); RED BLOOD CELL COUNT 4.69 10^6/uL (4.18-5.33); RED CELL DISTRIBUTION WIDTH 18.7 % (11.5-15.2)
[2017-02-10 21:29] LABS: ANION GAP 21 mEq/L (8-16); CALCIUM 9.7 mg/dL (8.5-10.4); CARBON DIOXIDE 16 mEq/l (22-31); CHLORIDE 104 mEq/L (97-110); CREATININE 0.8 mg/dL (0.6-1.0); GLOMERULAR FILTRATION RATE > 60; GLUCOSE 98 mg/dL (70-100); POTASSIUM 4.2 mEq/L (3.5-5.2); SALICYLATE < 1.0 mg/dL (2.0-20.0); SODIUM 141 mEq/L (134-144)
[2017-02-10 21:42] LABS: SPECIMEN HEMOLYSIS 118
[2017-02-10 21:44] LABS: ETHANOL SERUM 326 mg/dL (0-10)
[2017-02-10 23:27] VITALS: O2SAT 97
[2017-02-11] MEDS ORDERED: chlordiazePOXIDE 25 MG CAP PO ONE ×2 (05:36→08:54)
[2017-02-11 05:38] VITALS: TEMP 98.1
[2017-02-11 09:09] VITALS: BP 134/86; PULSE 92; RESP 16
== END 2017-02-11 09:23 | disposition home or self-care (01) ==
DX: R45.851 Suicidal ideations (principal); F10.220 Alcohol dependence with intoxication, uncomplicated; F32.1 Major depressive disorder, single episode, moderate
CPT/HCPCS: 80305; G0480

== ENCOUNTER 2017-02-25 22:27 | Emergency (ER) | payer MEDICAID ==
[2017-02-25 22:47] LABS: % IMMATURE GRANULYOCYTES 0.2 % (0.0-1.1); ABSOLUTE IMMATURE GRANULOCYTES 0.01 10^3/uL (0.00-0.10); ADD DIFF? NO; ADD MORPH? NO; ADD SCAN? NO; ATYPICAL LYMPHOCYTE FLAG 30 (0-99); FRAGMENT RBC FLAG 20 (0-99); HEMATOCRIT 34.8 % (38.0-47.0); LEFT SHIFT FLG 0 (0-99); LIPEMIA HEMOLYSIS FLAG 80 (0-99); MEAN CELL HEMOGLOBIN 25.4 pg (27.9-34.1); MEAN CELL HEMOGLOBIN CONCENTR. 31.6 g/dL (32.4-36.7); MEAN CELL VOLUME 80.4 fL (81.5-99.8); MEAN PLATELET VOLUME 9.9 fL (8.7-11.7); PLATELET CLUMPS FLAG 10 (0-99); PLATELET COUNT 289 10^3/uL (150-400); RED BLOOD CELL COUNT 4.33 10^6/uL (4.18-5.33); RED CELL DISTRIBUTION WIDTH 18.6 % (11.5-15.2)
[2017-02-25 23:00] LABS: ANION GAP 14 mEq/L (8-16); CALCIUM 9.2 mg/dL (8.5-10.4); CARBON DIOXIDE 19 mEq/l (22-31); CHLORIDE 105 mEq/L (97-110); CREATININE 0.7 mg/dL (0.6-1.0); GLOMERULAR FILTRATION RATE > 60; GLUCOSE 106 mg/dL (70-100); POTASSIUM 3.9 mEq/L (3.5-5.2); SODIUM 138 mEq/L (134-144)
--- NOTE | 2017-02-25 23:11 | EDPHY ---
H & P Stated Complaint: SI, and drunk - Personal History LMP (Females 10-55): 15-21 Days Ago Current Tetanus Diphtheria and Acellular Pertussis (TDAP): Yes Tetanus Vaccine Date: 02/15/2016 - Medical/Surgical History Hx Asthma: No Hx Chronic Respiratory Disease: No Hx Diabetes: No Hx Cardiac Disease: No Hx Renal Disease: No Hx Cirrhosis: No Hx Alcoholism: Yes Hx HIV/AIDS: No Hx Splenectomy or Spleen Trauma: No Other PMH: pancreatitis, ETOH abuse, suicidal ideation, depression, Bipolar, PTSD - Social History Smoking Status: Never smoked Time Seen by Provider: 02/25/17 22:57 HPI/ROS: Chief Complaint: Suicidal HPI: 42-year-old woman past medical history depression who has been drinking alcohol tonight. She has a history of feeling suicidal which she drinks. She called a friend who is concerned about her suicidal ideation and called 911. Patient was placed on a mental health hold by the police. She has a history of depression. Has attempted suicide in the past by overdose on pills. She denies any ingestions other than alcohol tonight. Denies any recent illness. No fevers or chills. No falls or head injuries. Admits to drinking a large amount of alcohol. ROS: 10 point Review of Systems is negative except as noted in the HPI. PMH: Depression Medications: Trazodone, Lexapro, hydroxyzine Allergies: Sulfa an Antabuse Social History: No smoking, positive alcohol, denies other drug use Family History: non-contributory Physical Exam: Gen: Awake, Alert, slurred speech, smells of alcohol HEENT: Nose: no rhinorrhea Eyes: PERRLA, EOMI Mouth: Moist mucosa Neck: Supple, no JVD Chest: nontender, lungs clear to auscultation Heart: S1, S2 normal, no murmur Abd: Soft, non-tender, no guarding Back: no CVA tenderness, no midline tenderness Ext: no edema, non-tender Skin: no rash Neuro: CN II-XII intact, Sensation grossly intact, Strength 5/5 in bilateral upper and lower extremities (Jonathan Martínez) Constitutional: Initial Vital Signs Respiratory Rate 14 02/26/17 01:03 O2 Delivery Mode Room Air Allergies/Adverse Reactions: disulfiram [From Antabuse] Allergy (Verified 02/10/17 19:40) gluten Allergy (Verified 02/10/17 19:40) Sulfa (Sulfonamide Antibiotics) Allergy (Verified 02/10/17 19:40) Home Medications: Medication Instructions Recorded Propranolol HCl 01/09/17 Prozac 40 mg 01/09/17 traZODone 01/09/17 Hydroxyzine HCl 02/25/17 Medical Decision Making ED Course/Re-evaluation: 42-year-old woman who is intoxicated suicidal. History of suicidality with alcohol in the past. She will need to metabolize her alcohol. She is on a mental health hold. She will need mental health evaluation sober. [address] Erwin pending sobriety and mental health evaluation. (Jonathan Martínez) Other Provider: Patient signed out to me at 0700. At 10:50, patient has been evaluated by mental health who feels she is no longer suicidal and they recommend discharge home - they have established a follow-up plan with her. (Felipe Erwin) - Data Points Laboratory Results: Laboratory Results 02/25/17 22:40 02/25/17 22:40 02/25/17 02/25/17 23:10 22:40 Sodium 138 mEq/L mEq/L (134-144) Potassium 3.9 mEq/L mEq/L (3.5-5.2) Chloride 105 mEq/L mEq/L (97-110) Carbon Dioxide 19 mEq/l L mEq/l (22-31) Anion Gap 14 mEq/L mEq/L (8-16) BUN 10 mg/dL mg/dL (7-23) Creatinine 0.7 mg/dL mg/dL (0.6-1.0) Estimated GFR > 60 Glucose 106 mg/dL H mg/dL (70-100) Calcium 9.2 mg/dL mg/dL (8.5-10.4) Urine Opiates Screen NEGATIVE (NEGATIVE) Urine Barbiturates NEGATIVE (NEGATIVE) Ur Phencyclidine Scrn NEGATIVE (NEGATIVE) Ur Amphetamine Screen NEGATIVE (NEGATIVE) U Benzodiazepines Scrn NON-NEGATIVE H (NEGATIVE) Urine Cocaine Screen NEGATIVE (NEGATIVE) U Marijuana (THC) Screen NON-NEGATIVE H (NEGATIVE) Ethyl Alcohol 315 mg/dL H mg/dL (0-10) Departure - Departure Disposition: Home, Routine, Self-Care Clinical Impression: Depression, Alcohol intoxication Condition: Good Instructions: Abuse of Alcohol (ED) Additional Instructions: Follow-up with your mental health provider as directed. Return to the ED for thoughts of self-harm, racing thoughts or other concerns. Referrals: [facility] [Other] - As per Instructions
[2017-02-25 23:18] LABS: ETHANOL SERUM 315 mg/dL (0-10)
[2017-02-26 08:56] VITALS: RESP 18
[2017-02-26 11:30] VITALS: BP 100/60; PULSE 85; TEMP 98.2; O2SAT 95
== END 2017-02-26 11:39 | disposition home or self-care (01) ==
DX: F32.9 Major depressive disorder, single episode, unspecified (principal); F10.129 Alcohol abuse with intoxication, unspecified
CPT/HCPCS: 80305; G0480

== ENCOUNTER 2017-04-04 20:23 | Emergency (ER) | payer MEDICAID ==
--- NOTE | 2017-04-04 20:23 | EDPHY ---
H & P - Personal History Tetanus Vaccine Date: 02/15/2016 - Medical/Surgical History Hx Asthma: No Hx Chronic Respiratory Disease: No Hx Diabetes: No Hx Cardiac Disease: No Hx Renal Disease: No Hx Cirrhosis: No Hx Alcoholism: Yes Hx HIV/AIDS: No Hx Splenectomy or Spleen Trauma: No Other PMH: pancreatitis, ETOH abuse, suicidal ideation, depression, Bipolar, PTSD - Social History Smoking Status: Never smoked Constitutional: Initial Vital Signs Temperature (C) 35.8 C L 04/04/17 20:32 Heart Rate 76 04/04/17 20:32 Respiratory Rate 12 04/04/17 20:32 Blood Pressure 135/102 H 04/04/17 20:32 O2 Sat (%) 99 04/04/17 20:32 O2 Delivery Mode Room Air O2 (L/minute) 3 Allergies/Adverse Reactions: disulfiram [From Antabuse] Allergy (Verified 02/10/17 19:40) gluten Allergy (Verified 02/10/17 19:40) Sulfa (Sulfonamide Antibiotics) Allergy (Verified 02/10/17 19:40) Home Medications: Medication Instructions Recorded Propranolol HCl 01/09/17 Prozac 40 mg 01/09/17 traZODone 01/09/17 Hydroxyzine HCl 02/25/17 Cetirizine 04/04/17 FLUoxetine 04/04/17 Medical Decision Making ED Course/Re-evaluation: CHIEF COMPLAINT: Apneic, AMS, OD HISTORY OF PRESENT ILLNESS: The patient is a 42 y/o female arriving emergently via EMS after she was found apneic following an intentional overdose. She has an extensive history of depression, bipolar disorder, and multiple suicide attempts and this is reportedly her second attempt this week. Per EMS, she was found next to bottles of Prozac, loperamide, cetirizine, as well as alcohol. EMS applied an NPA and intermittently used a BVM to maintain oxygenation. Patient did begin breathing spontaneously and still had a gag reflex en route. They administered 2mg Narcan with no effect. Her prehospital BGL was 110. She is unable to provide history secondary to condition. REVIEW OF SYSTEMS: Unable to obtain due to patient condition. PHYSICAL EXAM: HR, BP, O2 Sat, RR. Temp noted General Appearance: Somnolent but responds to painful stimuli. Head: Atraumatic without scalp tenderness or obvious injury Eyes: Pupils equal, round, reactive to light and accommodation, EOMI, no trauma , no injection. Nose: Atraumatic, no rhinorrhea, clear. Throat: mucus membranes moist. Neck: Supple Respiratory: No retractions, no distress, no wheezes, and no accessory muscle use. Lungs are clear to auscultation bilaterally. Cardiovascular: Regular rate and rhythm, no murmurs, rubs, or gallops. Good capillary refill all extremities. Gastrointestinal: Abdomen is soft, non-tender, non-distended, no masses, no rebound, no guarding, no peritoneal signs. Musculoskeletal: Normal active ROM of all extremities, atraumatic. Neurological: Somnolent, responds to painful stimuli. Moving all 4 extremities. Skin: No rashes, good turgor, no nodules on palpation. PAST MEDICAL HISTORY: Depression, multiple suicide attempts, pancreatitis, alcohol abuse, bipolar disorder PAST SURGICAL HISTORY: noncontributory SOCIAL HISTORY: Lives in [place]. Unemployed. DIFFERENTIAL DIAGNOSIS: The differential diagnosis for the patient's depression included but was not limited to functional and major depression, situational depression, medication side effect, drugs, and alcohol abuse. MEDICAL DECISION MAKING: This is a 42 y/o female with a long history of depression and suicide attempts who arrives today after she was found apneic next to several medication bottles. She responds to painful stimulus upon arrival and continues to have a gag reflex. I considered airway control, but she is becoming more alert since arrival here and was able to sit up unassisted. Plan for labs, tox screen, and close reassessment. EtOH serum 388. Patient will require admission. 214: Patient care signed out to Dr. Guaman at shift change pending admission. (Arnaldo Martínez) I took over care of this patient at 7:00 a.m.. The patient is on an M1 hold for alcohol intoxication, suicidal ideation and history of bipolar disorder. She is awaiting evaluation by Behavioral Health at this time. 12:20 p.m., patient has been seen and evaluated by Behavioral Health. They plan to keep her on a hold admit her for further psychiatric evaluation. Destination for admission pending. 3:20 p.m., patient continues to await for placement for psychiatric admission. Care turned over to Dr. Jonathan Martínez at this time. (Azalia Tobias) Other Provider: 1520 care assumed by me from Dr. Tobias pending placement. Patient is on a mental health hold. 2109 patient has been accepted to us pt by , I have completed the EMTALA. (Jonathan Martínez) - Data Points Laboratory Results: Laboratory Results 04/04/17 20:24 04/04/17 20:24 04/05/17 Unknown Total Bilirubin 0.4 mg/dL mg/dL (0.1-1.4) Conjugated Bilirubin 0.1 mg/dL mg/dL (0.0-0.5) Unconjugated Bilirubin 0.3 mg/dL mg/dL (0.0-1.1) AST 52 IU/L H IU/L (14-46) ALT 71 IU/L H IU/L (9-52) Alkaline Phosphatase 64 IU/L IU/L (38-126) Total Protein 6.6 g/dL g/dL (6.3-8.2) Albumin 3.9 g/dL g/dL (3.5-5.0) TSH 0.725 uIU/mL uIU/mL (0.465-4.680) Medications Given: Discontinued Medications Chlordiazepoxide HCl (Librium) 25 mg PO EDNOW ONE Stop: 04/05/17 09:27 Last Admin: 04/05/17 09:31 Dose: 25 mg Chlordiazepoxide HCl (Librium) 25 mg PO EDNOW ONE Stop: 04/05/17 13:09 Last Admin: 04/05/17 13:11 Dose: 25 mg Chlordiazepoxide HCl (Librium) 25 mg PO EDNOW ONE Stop: 04/05/17 18:17 Last Admin: 04/05/17 18:18 Dose: 25 mg Ibuprofen (Motrin) 600 mg PO EDNOW ONE Stop: 04/05/17 19:16 Last Admin: 04/05/17 19:18 Dose: 600 mg Ondansetron HCl (Zofran Odt) 4 mg PO EDNOW ONE Stop: 04/05/17 09:27 Last Admin: 04/05/17 09:31 Dose: 4 mg Departure - Departure Disposition: Other Psych, Not [facility] Clinical Impression: Suicidal ideation Overdose Qualifiers: Encounter type: initial encounter Injury intent: intentional self-harm Qualified Code(s): T50.902A - Poisoning by unspecified drugs, medicaments and biological substances, intentional self-harm, initial encounter Alcohol intoxication Qualifiers: Complication of substance-induced condition: with unspecified complication Qualified Code(s): F10.929 - Alcohol use, unspecified with intoxication, unspecified Condition: Fair Referrals: Patient,NotPresent [Primary Care Provider] - As per Instructions Report Scribed for: Arnaldo Martínez Report Scribed by: Grace Zavala Date of Report: 04/04/17 Time of Report: 20:34
[2017-04-04 20:53] LABS: % IMMATURE GRANULYOCYTES 0.2 % (0.0-1.1); ABSOLUTE IMMATURE GRANULOCYTES 0.02 10^3/uL (0.00-0.10); ADD DIFF? NO; ADD MORPH? NO; ADD SCAN? NO; ATYPICAL LYMPHOCYTE FLAG 0 (0-99); FRAGMENT RBC FLAG 20 (0-99); HEMATOCRIT 32.1 % (38.0-47.0); HEMOGLOBIN 10.8 g/dL (12.6-16.3); LEFT SHIFT FLG 0 (0-99); LIPEMIA HEMOLYSIS FLAG 80 (0-99); MEAN CELL HEMOGLOBIN 25.9 pg (27.9-34.1); MEAN CELL HEMOGLOBIN CONCENTR. 33.6 g/dL (32.4-36.7); MEAN PLATELET VOLUME 9.9 fL (8.7-11.7); PLATELET CLUMPS FLAG 0 (0-99); PLATELET COUNT 253 10^3/uL (150-400); RED BLOOD CELL COUNT 4.17 10^6/uL (4.18-5.33); RED CELL DISTRIBUTION WIDTH 17.8 % (11.5-15.2)
[2017-04-04 21:00] LABS: ANION GAP 17 mEq/L (8-16); CALCIUM 9.2 mg/dL (8.5-10.4); CARBON DIOXIDE 23 mEq/l (22-31); CHLORIDE 101 mEq/L (97-110); CREATININE 0.7 mg/dL (0.6-1.0); GLOMERULAR FILTRATION RATE > 60; GLUCOSE 101 mg/dL (70-100); POTASSIUM 3.8 mEq/L (3.5-5.2); SALICYLATE < 1.0 mg/dL (2.0-20.0); SODIUM 141 mEq/L (134-144)
[2017-04-04 21:24] LABS: ETHANOL SERUM 388 mg/dL (0-10)
[2017-04-05] MEDS ORDERED: chlordiazePOXIDE 25 MG CAP PO ONE ×4 (09:26→21:41)
[2017-04-05] MEDS ORDERED: ONDANSETRON DISINTEGRATING 4 MG TAB PO ONE (09:26)
[2017-04-05 16:00] VITALS: RESP 16
[2017-04-05] MEDS ORDERED: IBUPROFEN 600 MG TAB PO ONE (19:15)
[2017-04-05 19:32] LABS: ALBUMIN 3.9 g/dL (3.5-5.0); BILIRUBIN,TOTAL 0.4 mg/dL (0.1-1.4); BILIRUBIN-CONJUGATED 0.1 mg/dL (0.0-0.5); BILIRUBIN-UNCONJUGATED 0.3 mg/dL (0.0-1.1); TOTAL PROTEIN 6.6 g/dL (6.3-8.2)
[2017-04-05 21:48] VITALS: BP 142/96; PULSE 74; TEMP 97.9; O2SAT 96
== END 2017-04-05 21:48 ==
LOC: EDUNIT#
PROC: 0T9B70Z Drainage of Bladder with Drainage Device, Via Natural or Artificial Opening (ICD-10-PCS; principal; 2017-04-04)
DX: T43.222A Poisoning by selective serotonin reuptake inhibitors, intentional self-harm, initial encounter (principal); T47.6X2A Poisoning by antidiarrheal drugs, intentional self-harm, initial encounter; T45.0X2A Poisoning by antiallergic and antiemetic drugs, intentional self-harm, initial encounter; F10.929 Alcohol use, unspecified with intoxication, unspecified
CPT/HCPCS: 80305; G0480

== ENCOUNTER 2017-05-18 11:44 | Emergency (ER) | payer MEDICAID ==
[2017-05-18] MEDS ORDERED: ONDANSETRON DISINTEGRATING 4 MG TAB ONE (11:54)
[2017-05-18] MEDS ORDERED: ONDANSETRON DISINTEGRATING 4 MG TAB PO ONE (11:56)
--- NOTE | 2017-05-18 12:23 | EDPHY ---
H & P Stated Complaint: ETOH W/D, SI - Personal History Current Tetanus/Diphtheria Vaccine: Yes Tetanus Vaccine Date: 02/15/2016 - Medical/Surgical History Hx Asthma: No Hx Chronic Respiratory Disease: No Hx Diabetes: No Hx Cardiac Disease: No Hx Renal Disease: No Hx Cirrhosis: No Hx Alcoholism: Yes Hx HIV/AIDS: No Hx Splenectomy or Spleen Trauma: No Other PMH: DPRESSION - Social History Smoking Status: Never smoked Time Seen by Provider: 05/18/17 12:05 HPI/ROS: CHIEF COMPLAINT: "I relapsed and I Wanna kill myself " HISTORY OF PRESENT ILLNESS: 42-year-old female arrives via ambulance after therapist called EMS as the patient stated that she has started drinking alcohol again and was having suicidal thoughts without definitive plan. Last drink of alcohol was 3 hr ago. Denies hallucination. Denies self-injury. States that she is not feel safe being around herself. No homicidal ideation PRIMARY CARE PROVIDER: REVIEW OF SYSTEMS: A ten point review of systems was performed and is negative with the exception of the items mentioned in the HPI PAST MEDICAL & SURGICAL HISTORY: Depression. Alcoholism. SOCIAL HISTORY: last drink of alcohol was 3 hr ago PHYSICAL EXAM (Prior to examination, patient consented to physical exam, hands were washed and my usual and customary physical exam procedures followed) 1) GENERAL: Well-developed, well-nourished, alert and oriented. Tearful. Smells of alcohol 2) HEAD: Normocephalic, atraumatic 3) HEENT: Pupils equal, round, reactive to light bilaterally. Sclera anicteric. 4) NECK: Full range of motion, no meningeal signs. 5) LUNGS: Clear auscultation bilaterally, no wheezes, no rhonchi, no retractions. 6) HEART: Regular rate and rhythm, no murmur, no heave, no gallop. 7) ABDOMEN: No guarding, no rebound, no focal tenderness, negative McBurney's, 8) MUSCULOSKELETAL: No peripheral edema or discoloration. 9) BACK: no visual or palpable abnormality. 10) SKIN: No rash, no petechiae. 11) Psychiatric: Patient is oriented X 3, there is no agitation. DIFFERENTIAL DIAGNOSIS: in no particular order including but not limited to suicidal ideation, homicidal ideation, acute alcohol intoxication (Adriel Strickland Deysi) Constitutional: Initial Vital Signs Temperature (C) 36.9 C 05/18/17 11:49 Heart Rate 84 05/18/17 11:49 Respiratory Rate 16 05/18/17 11:49 Blood Pressure 129/80 H 05/18/17 11:49 O2 Sat (%) 100 05/18/17 11:49 O2 Delivery Mode Room Air Allergies/Adverse Reactions: disulfiram [From Antabuse] Allergy (Verified 02/10/17 19:40) gluten Allergy (Verified 02/10/17 19:40) Sulfa (Sulfonamide Antibiotics) Allergy (Verified 02/10/17 19:40) Home Medications: Medication Instructions Recorded Propranolol HCl 01/09/17 Prozac 40 mg 01/09/17 traZODone 01/09/17 Hydroxyzine HCl 02/25/17 Citalopram 03/31/17 Gabapentin 03/31/17 Hydroxyzine HCl 03/31/17 Propranolol HCl 03/31/17 busPIRone 03/31/17 traZODone 03/31/17 Cetirizine 04/04/17 FLUoxetine 04/04/17 LORazepam [Ativan (*)] 1 mg PO TID #11 tab 05/18/17 Medical Decision Making ED Course/Re-evaluation: 12:20 p.m.: Patient placed on emergency department detain as I suspect acute alcohol intoxication.Care of patient under supervision of secondary supervising physician Dr Bond . Patient has been re-evaluated with serial examinations throughout her emergency department stay. No hallucination. Doubt delirium tremens. 5:00 p.m.: Care turned over to Dr. Jesika Davis. Patient's recent breathalyzer is 0.8. She will need to continue to sober prior to mental health evaluation (Adriel Strickland Deysi) 17 20: The patient is signed out to me at change of shift by Adriel Strickland. 0: I discussed case with the client program manager. Psychiatric Services recommend the patient be sent back to respite bed. They did request the patient be given a prescription of Ativan. She has no history of abuse. Patient was given warnings prior to leaving. She will return with worsening symptoms. (Jesika Davis S) - Data Points Laboratory Results: Laboratory Results 05/18/17 12:20 05/18/17 12:20 05/18/17 05/18/17 05/18/17 14:13 12:20 12:20 WBC RBC Hgb Hct MCV MCH MCHC RDW Plt Count MPV Neut % (Auto) Lymph % (Auto) [place] % (Auto) Eos % (Auto) Baso % (Auto) Nucleat RBC Rel Count Absolute Neuts (auto) Absolute Lymphs (auto) Absolute Monos (auto) Absolute Eos (auto) Absolute Basos (auto) Absolute Nucleated RBC Immature Gran % Immature Gran # Sodium 144 mEq/L mEq/L (134-144) Potassium 4.5 mEq/L mEq/L (3.5-5.2) Chloride 104 mEq/L mEq/L (97-110) Carbon Dioxide 13 mEq/l L mEq/l (22-31) Anion Gap 27 mEq/L H mEq/L (8-16) BUN 17 mg/dL mg/dL (7-23) Creatinine 0.9 mg/dL mg/dL (0.6-1.0) Estimated GFR > 60 Glucose 90 mg/dL mg/dL (70-100) Calcium 9.5 mg/dL mg/dL (8.5-10.4) Beta HCG, Qual NEGATIVE Urine Opiates Screen NEGATIVE (NEGATIVE) Urine Barbiturates NEGATIVE (NEGATIVE) Ur Phencyclidine Scrn NEGATIVE (NEGATIVE) Ur Amphetamine Screen NEGATIVE (NEGATIVE) U Benzodiazepines Scrn NEGATIVE (NEGATIVE) Urine Cocaine Screen NEGATIVE (NEGATIVE) U Marijuana (THC) Screen NEGATIVE (NEGATIVE) Ethyl Alcohol 170 mg/dL H mg/dL (0-10) 05/18/17 12:20 WBC 7.10 10^3/uL 10^3/uL (3.80-9.50) RBC 4.35 10^6/uL 10^6/uL (4.18-5.33) Hgb 11.1 g/dL L g/dL (12.6-16.3) Hct 33.6 % L % (38.0-47.0) MCV 77.2 fL L fL (81.5-99.8) MCH 25.5 pg L pg (27.9-34.1) MCHC 33.0 g/dL g/dL (32.4-36.7) RDW 17.5 % H % (11.5-15.2) Plt Count 344 10^3/uL 10^3/uL (150-400) MPV 9.2 fL fL (8.7-11.7) Neut % (Auto) 66.6 % % (39.3-74.2) Lymph % (Auto) 29.3 % % (15.0-45.0) [place] % (Auto) 3.2 % L % (4.5-13.0) Eos % (Auto) 0.0 % L % (0.6-7.6) Baso % (Auto) 0.3 % % (0.3-1.7) Nucleat RBC Rel Count 0.0 % % (0.0-0.2) Absolute Neuts (auto) 4.73 10^3/uL 10^3/uL (1.70-6.50) Absolute Lymphs (auto) 2.08 10^3/uL 10^3/uL (1.00-3.00) Absolute Monos (auto) 0.23 10^3/uL L 10^3/uL (0.30-0.80) Absolute Eos (auto) 0.00 10^3/uL L 10^3/uL (0.03-0.40) Absolute Basos (auto) 0.02 10^3/uL 10^3/uL (0.02-0.10) Absolute Nucleated RBC 0.00 10^3/uL 10^3/uL (0-0.01) Immature Gran % 0.6 % % (0.0-1.1) Immature Gran # 0.04 10^3/uL 10^3/uL (0.00-0.10) Sodium Potassium Chloride Carbon Dioxide Anion Gap BUN Creatinine Estimated GFR Glucose Calcium Beta HCG, Qual Urine Opiates Screen Urine Barbiturates Ur Phencyclidine Scrn Ur Amphetamine Screen U Benzodiazepines Scrn Urine Cocaine Screen U Marijuana (THC) Screen Ethyl Alcohol Medications Given: Discontinued Medications Acetaminophen (Tylenol) 650 mg PO EDNOW ONE Stop: 05/18/17 14:32 Last Admin: 05/18/17 14:34 Dose: 650 mg Al Hydroxide/Mg Hydroxide (Maalox Susp) 30 ml PO EDNOW ONE Stop: 05/18/17 15:47 Last Admin: 05/18/17 15:54 Dose: 30 ml Lorazepam (Ativan Injection) 1 mg IVP EDNOW ONE Stop: 05/18/17 15:49 Last Admin: 05/18/17 15:54 Dose: Not Given Lorazepam (Ativan) 1 mg PO EDNOW ONE Stop: 05/18/17 15:49 Last Admin: 05/18/17 15:54 Dose: 1 mg Ondansetron HCl (Zofran Odt) 4 mg PO EDNOW ONE Stop: 05/18/17 11:57 Last Admin: 05/18/17 11:57 Dose: 4 mg Departure - Departure Disposition: Home, Routine, Self-Care Clinical Impression: Alcohol intoxication Qualifiers: Complication of substance-induced condition: uncomplicated Qualified Code(s): F10.920 - Alcohol use, unspecified with intoxication, uncomplicated Condition: Fair Instructions: Alcohol Intoxication (ED) Additional Instructions: Return with increasing depression, thoughts of self-harm, anxiety, or any other concerns. Referrals: [facility],. [Clinic] - 3-4 days, if not improved Prescriptions: LORazepam [Ativan (*)] 1 mg PO TID #11 tab
[2017-05-18 12:48] LABS: % IMMATURE GRANULYOCYTES 0.6 % (0.0-1.1); ABSOLUTE IMMATURE GRANULOCYTES 0.04 10^3/uL (0.00-0.10); ADD DIFF? NO; ADD MORPH? NO; ADD SCAN? NO; ATYPICAL LYMPHOCYTE FLAG 0 (0-99); FRAGMENT RBC FLAG 20 (0-99); HEMATOCRIT 33.6 % (38.0-47.0); HEMOGLOBIN 11.1 g/dL (12.6-16.3); LEFT SHIFT FLG 0 (0-99); LIPEMIA HEMOLYSIS FLAG 80 (0-99); MEAN CELL HEMOGLOBIN 25.5 pg (27.9-34.1); MEAN CELL VOLUME 77.2 fL (81.5-99.8); MEAN PLATELET VOLUME 9.2 fL (8.7-11.7); PLATELET CLUMPS FLAG 0 (0-99); PLATELET COUNT 344 10^3/uL (150-400); RED BLOOD CELL COUNT 4.35 10^6/uL (4.18-5.33); RED CELL DISTRIBUTION WIDTH 17.5 % (11.5-15.2)
[2017-05-18 12:55] LABS: ANION GAP 27 mEq/L (8-16); CALCIUM 9.5 mg/dL (8.5-10.4); CARBON DIOXIDE 13 mEq/l (22-31); CHLORIDE 104 mEq/L (97-110); CREATININE 0.9 mg/dL (0.6-1.0); ETHANOL SERUM 170 mg/dL (0-10); GLOMERULAR FILTRATION RATE > 60; GLUCOSE 90 mg/dL (70-100); POTASSIUM 4.5 mEq/L (3.5-5.2); SODIUM 144 mEq/L (134-144)
[2017-05-18] MEDS ORDERED: ACETAMINOPHEN 325 MG TAB PO ONE (14:31)
[2017-05-18] MEDS ORDERED: MAG HYDROX/AL HYDROX/SIMETH 30 ML UDCUP PO ONE (15:46)
[2017-05-18] MEDS ORDERED: LORazepam 2 MG/ML INJ IVP ONE (15:48)
[2017-05-18] MEDS ORDERED: LORazepam 1 MG TAB PO ONE (15:48)
[2017-05-18 16:44] VITALS: RESP 18
[2017-05-18 20:07] VITALS: BP 135/82; PULSE 97; TEMP 98.6; O2SAT 97
== END 2017-05-18 20:18 | disposition home or self-care (01) ==
LOC: EDUNIT#
DX: F10.920 Alcohol use, unspecified with intoxication, uncomplicated (principal)
CPT/HCPCS: 80305; G0480

== ENCOUNTER 2017-05-20 12:41 | Emergency (ER) | payer MEDICAID ==
--- NOTE | 2017-05-20 13:02 | EDPHY ---
H & P Stated Complaint: ETOH/WANTS DETOX/PSYCH EVAL Source: Patient - Personal History LMP (Females 10-55): 1-7 Days Ago Current Tetanus/Diphtheria Vaccine: Yes Tetanus Vaccine Date: 02/15/2016 - Medical/Surgical History Hx Asthma: No Hx Chronic Respiratory Disease: No Hx Diabetes: No Hx Cardiac Disease: No Hx Renal Disease: No Hx Cirrhosis: No Hx Alcoholism: Yes Hx HIV/AIDS: No Hx Splenectomy or Spleen Trauma: No Other PMH: Depression - Family History Significant Family History: No pertinent family hx - Social History Smoking Status: Never smoked Time Seen by Provider: 05/20/17 12:58 HPI/ROS: CHIEF COMPLAINT: Alcohol dependence, feeling depressed and suicidal HISTORY OF PRESENT ILLNESS: The patient presents to the ED with alcohol intoxication. She reports that she has been depressed suicidal thought her recent relapse. She was seen in the emergency department 2 days ago and was discharged to a respite bed. The patient reportedly left that facility. She would visit a friend today and arrived at his house strong. She had consumed half a bottle of vodka. The patient denies any medication co ingestion. She does have a history of suicide attempt by antidepressant overdose in the past. REVIEW OF SYSTEMS: A comprehensive 10 point review of systems is otherwise negative aside from elements mentioned in the history of present illness. (Colby Villafuerte) - Physical Exam Exam: General Appearance: Alert, alcohol on breath, somnolent from toxication but well Eyes: Pupils equal and round no pallor or injection ENT, Mouth: Mucous membranes moist Respiratory: There are no retractions, lungs are clear to auscultation Cardiovascular: Regular rate and rhythm Gastrointestinal: Abdomen is soft and nontender, no masses, bowel sounds normal Neurological: A&O, normal motor function, normal sensory exam, normal cranial nerves Skin: Warm and dry, no rashes Musculoskeletal: Neck is supple nontender Extremities: symmetrical, full range of motion Psychiatric: Patient is oriented X 3, reports suicidal ideation, denies specific plan (Colby Villafuerte) Constitutional: Initial Vital Signs Temperature (C) 36.6 C 05/20/17 12:44 Heart Rate 108 H 05/20/17 12:44 Respiratory Rate 20 05/20/17 12:44 Blood Pressure 130/105 H 05/20/17 12:44 O2 Sat (%) 95 05/20/17 12:44 O2 Delivery Mode Room Air O2 (L/minute) 95 Allergies/Adverse Reactions: Sulfa (Sulfonamide Antibiotics) Allergy (Verified 05/20/17 13:10) Home Medications: Medication Instructions Recorded Propranolol HCl 01/09/17 Prozac 40 mg 01/09/17 traZODone 01/09/17 Hydroxyzine HCl 02/25/17 Citalopram 03/31/17 Gabapentin 03/31/17 Hydroxyzine HCl 03/31/17 Propranolol HCl 03/31/17 busPIRone 03/31/17 traZODone 03/31/17 Cetirizine 04/04/17 FLUoxetine 04/04/17 LORazepam [Ativan (*)] 1 mg PO TID #11 tab 05/18/17 Medical Decision Making ED Course/Re-evaluation: The patient was placed on an M1 psychiatric hold by myself in the setting of suicidal ideation. The patient is currently intoxicated. She has been medically cleared for psychiatric evaluation which will be obtained when she is sober. The patient is noted to have a slightly worsened chronic anemia. She is hemodynamically stable. I have instructed her that she does need to follow up with her primary care provider for further evaluation of this condition. The patient had medically cleared for psychiatric evaluation. She will be turned over Dr. Erwin at 8:30 p.m.. (Colby Villafuerte) 5:26 a.m.- The patient has required several doses of Librium here for alcohol withdrawal per her request. Her vital signs have remained normal and she is not tachycardic or hypertensive. She has been evaluated by the mental health worker and she is no longer suicidal. She is asking to go to withdrawal management and we plan to [facility] for Librium. She is happy with this plan. (Nany Stover) Differential Diagnosis: Differential diagnosis considered includes alcohol intoxication, suicidal ideation, psychosis, intentional overdose, arrhythmia (Colby Villafuerte) - Data Points Laboratory Results: Laboratory Results 05/20/17 13:25 05/20/17 13:25 Medications Given: Discontinued Medications Chlordiazepoxide HCl (Librium) 50 mg PO EDNOW ONE Stop: 05/20/17 23:23 Last Admin: 05/20/17 23:25 Dose: 50 mg Chlordiazepoxide HCl (Librium) 50 mg PO EDNOW ONE Stop: 05/21/17 04:59 Last Admin: 05/21/17 05:22 Dose: 50 mg Ibuprofen (Motrin) 600 mg PO EDNOW ONE Stop: 05/20/17 18:52 Last Admin: 05/20/17 19:19 Dose: 600 mg Ondansetron HCl (Zofran Odt) 4 mg PO EDNOW ONE Stop: 05/20/17 18:52 Last Admin: 05/20/17 19:19 Dose: 4 mg Ondansetron HCl (Zofran Odt) 4 mg PO EDNOW ONE Stop: 05/21/17 05:03 Last Admin: 05/21/17 05:16 Dose: 4 mg Departure - Departure Disposition: Home, Routine, Self-Care Clinical Impression: Alcoholism Alcohol intoxication Qualifiers: Complication of substance-induced condition: with unspecified complication Qualified Code(s): F10.929 - Alcohol use, unspecified with intoxication, unspecified Anemia Qualifiers: Anemia type: unspecified type Qualified Code(s): D64.9 - Anemia, unspecified Condition: Good Instructions: Alcohol Intoxication (ED) Referrals: [facility] [Outside] - As per Instructions
[2017-05-20 13:42] LABS: % IMMATURE GRANULYOCYTES 0.7 % (0.0-1.1); ABSOLUTE IMMATURE GRANULOCYTES 0.03 10^3/uL (0.00-0.10); ABSOLUTE NRBC COUNT 0.03 10^3/uL (0-0.01); ADD DIFF? NO; ADD MORPH? NO; ADD SCAN? YES; ATYPICAL LYMPHOCYTE FLAG 10 (0-99); FRAGMENT RBC FLAG 0 (0-99); HEMATOCRIT 29.9 % (38.0-47.0); LEFT SHIFT FLG 0 (0-99); LIPEMIA HEMOLYSIS FLAG 80 (0-99); MEAN CELL HEMOGLOBIN 25.1 pg (27.9-34.1); MEAN CELL HEMOGLOBIN CONCENTR. 33.4 g/dL (32.4-36.7); MEAN CELL VOLUME 74.9 fL (81.5-99.8); MEAN PLATELET VOLUME 10.3 fL (8.7-11.7); NRBC-AUTO% 0.7 % (0.0-0.2); PLATELET COUNT 163 10^3/uL (150-400); RED BLOOD CELL COUNT 3.99 10^6/uL (4.18-5.33); RED CELL DISTRIBUTION WIDTH 17.2 % (11.5-15.2)
[2017-05-20 13:43] LABS: PLATELET CLUMPS FLAG 200 (0-99)
[2017-05-20 13:52] LABS: ANION GAP 27 mEq/L (8-16); CALCIUM 9.7 mg/dL (8.5-10.4); CARBON DIOXIDE 17 mEq/l (22-31); CHLORIDE 102 mEq/L (97-110); CREATININE 0.8 mg/dL (0.6-1.0); GLOMERULAR FILTRATION RATE > 60; GLUCOSE 113 mg/dL (70-100); POTASSIUM 3.6 mEq/L (3.5-5.2); SODIUM 146 mEq/L (134-144)
[2017-05-20 14:10] LABS: SCAN NEGATIVE
[2017-05-20 14:12] LABS: ETHANOL SERUM 382 mg/dL (0-10)
[2017-05-20] MEDS ORDERED: ONDANSETRON DISINTEGRATING 4 MG TAB PO ONE (18:51)
[2017-05-20] MEDS ORDERED: IBUPROFEN 600 MG TAB PO ONE (18:51)
[2017-05-20 23:16] VITALS: TEMP 97.7; O2SAT 96
[2017-05-20] MEDS ORDERED: chlordiazePOXIDE 25 MG CAP ONE (23:21)
[2017-05-20] MEDS ORDERED: chlordiazePOXIDE 25 MG CAP PO ONE (23:22)
[2017-05-21] MEDS ORDERED: chlordiazePOXIDE 25 MG CAP PO ONE (04:58)
[2017-05-21] MEDS ORDERED: ONDANSETRON DISINTEGRATING 4 MG TAB PO ONE (05:02)
[2017-05-21] MEDS ORDERED: CHLORDIAZEPOXIDE 25MG PREPK#6 BTL TAKEHOME ONE (05:24)
[2017-05-21 05:43] VITALS: BP 122/79; PULSE 87; RESP 16
== END 2017-05-21 05:51 | disposition home or self-care (01) ==
DX: F10.929 Alcohol use, unspecified with intoxication, unspecified (principal); D64.9 Anemia, unspecified
CPT/HCPCS: 80305; G0480